=== PATIENT | female | born 2000 | race Caucasian/White ===

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

== ENCOUNTER → 2021-03-16 | Day surgery (SDC) | payer OTHER ==
[~2021-03-16] VITALS: Ht 157.5 cm; Wt 81.6 kg
[~2021-03-16] MED LIST: PERCOCET 5-3251 EACH PO; PHENERGAN25 M1 PO; PROZAC20 MG PO
[2021-03-16 08:39] LABS: HCG (URINE) SCREEN NEGATIVE (NEGATIVE)
[2021-03-16 09:19] LABS: BASOPHIL 0.4 % (0-2); EOSINOPHIL 1.7 % (0-5); HCT 41.2 % (37.0-47.0); HGB 13.9 g/dl (12.5-16.0); LYMPHOCYTE 23.1 % (15-48); MCH 30.2 pg (25.0-31.0); MCHC 33.7 g/dL (32.0-36.0); MCV 89.6 fL (78.0-100.0); MONOCYTE 9.5 % (0-12); MPV 12.3 fL (6.0-9.5); NEUTROPHIL 65.1 % (41-80); NRBC 0; PLT 184 K/uL (150-400); RDW 13.7 % (11.5-14.0)
== END | disposition home or self-care (01) ==
LOC: FAS 03-09 09:45
PROVIDERS: Oral & Maxillofacial Surgery
DX: K02.9 Dental caries, unspecified (principal); K04.7 Periapical abscess without sinus; F32.9 Major depressive disorder, single episode, unspecified; F40.232 Fear of other medical care; E66.9 Obesity, unspecified
CPT/HCPCS: 36415; 84703; 85025; 93005; J1100; J2250; J2405; J2704; J3010; J7120